=== PATIENT | female | born 1950 | race Caucasian/White ===

== ENCOUNTER → 2017-07-17 | Outpatient (CLI) | payer OTHER | END | disposition home or self-care (01) | LOC: LAB SHORT 07:25 → PLD 07:25 | DX: L82.1 Other seborrheic keratosis (principal) | CPT/HCPCS: 88305 ==

== ENCOUNTER → 2020-05-24 | Outpatient (CLI) | payer OTHER | END | disposition home or self-care (01) | LOC: LAB SHORT 12:39 → LAB 12:39 | DX: L82.1 Other seborrheic keratosis (principal); L57.0 Actinic keratosis | CPT/HCPCS: 88305 ==

== ENCOUNTER 2021-01-26 08:47 | Day surgery (SDC) | payer OTHER ==
[~2021-01-26] VITALS: Ht 157.5 cm; Wt 65.3 kg
[~2021-01-26 08:47] MED LIST: DICL75ER PO
--- NOTE | 2021-01-26 09:21 | NUR ---
Ambulatory in Day Surgery Surgical site prepped with 2% Chlorhexidine cloth wipe. Mindy Paws warming gown applied. History, Chart, Medications and Allergies reviewed before start of procedure.Lungs clear T/O to Auscultation. Patient confirms NPO status and agrees with scheduled surgery. Pre-Op teaching done. Pt verbalizes understanding. Patient States Post-Procedure ride home has been arranged. Patient reports completing Chlorhexadine shower X2 prior to admission to hospital.
--- NOTE | 2021-01-26 13:23 | NUR ---
01/26/21 1323 [facility],[place] NO SPECIMENS PER DR NAVARRO.
--- NOTE | 2021-01-26 15:20 | NUR ---
PT ARRIVED TO UNIT FROM PACU REPORTS PAIN 5/10 TO LLE, STATING TOLERABLE. DRESSINGS TO LLE X3 CDI. POLAR PACK IN PLACE TO HIP. VSS. PT SLEEPY BUT AROUSABLE. ORIENTED TO ROOM AND CALL LIGHT; CALL LIGHT IN REACH. RESTING W/EYES CLOSED AT THIS TIME.
--- NOTE | 2021-01-26 17:09 | NUR ---
SUMMARY PT WORKED W/THERAPY. SAT UP ON SIDE OF BED AND BECAME LIGHTHEADED AND SLIGHTLY NAUSEATED. THERAPIST ASSISTED PT BACK TO BED. PT REPORTED BOTH NAUSEA AND LIGHTHEADED FEELING RESOLVED. RATES PAIN 1/10 AT THIS TIME. CALL LIGHT IN REACH.
[2021-01-27 04:01] LABS: BASOPHILS ABSOLUTE AUTO 0.02 K/mm3 (0.00-0.23); BASOPHILS PERCENT AUTO 0 % (0-2); EOSINOPHILS PERCENT AUTO 0 % (0-6); Hematocrit 32.4 % (33.0-51.0); Hemoglobin 11.1 g/dL (11.5-16.0); IMMATURE GRAN ABSOLUTE AUTO 0.04 K/mm3 (0.00-0.10); IMMATURE GRAN PERCENT AUTO 0 % (0-1); LYMPHOCYTES ABSOLUTE AUTO 1.14 K/mm3 (0.84-5.20); LYMPHOCYTES PERCENT AUTO 11 % (21-46); MONOCYTES ABSOLUTE AUTO 0.72 K/mm3 (0.16-1.47); MONOCYTES PERCENT AUTO 7 % (4-13); Mean Corpuscular HGB 31.8 pg (26.0-34.0); Mean Corpuscular HGB Conc 34.3 g/dL (31.5-36.5); Mean Corpuscular Volume 93 fL (80-100); Mean Platelet Volume 9.4 fL (9.1-12.4); NEUTROPHILS ABSOLUTE AUTO 8.83 K/mm3 (1.96-9.15); NEUTROPHILS PERCENT AUTO 82 % (41-73); Platelet Count 216 K/mm3 (150-400); RDW Coefficient Variation 12.2 % (11.7-14.2); RDW Standard Deviation 41.5 fL (35.1-46.3); Red Blood Cell Count 3.49 M/mm3 (3.80-5.20); White Blood Cell Count 10.75 K/mm3 (4.00-11.30)
[2021-01-27 04:17] LABS: Anion Gap 3 mmol/L (6-16); Blood Urea Nitrogen 16 mg/dL (8-24); Bun/Creatinine Ratio 22.7 (12.0-20.0); CO2, Blood 29 mmol/L (21-32); Calcium, Blood 8.6 mg/dL (8.5-10.1); Chloride, Blood 105 mmol/L (98-108); Creatinine, Blood 0.71 mg/dL (0.40-1.00); Glomerular Filtration Rate >60 (60-); Glucose, Blood 143 mg/dL (70-99); Magnesium, Blood 2.1 mg/dL (1.6-2.4); Potassium, Blood 4.1 mmol/L (3.5-5.5); Sodium, Blood 137 mmol/L (136-145)
--- NOTE | 2021-01-27 05:12 | NUR ---
LYING IN SEMI FOWLERS WITH EYES CLOSED, HAS RESTED WELL THIS SHIFT. AT START OF SHIFT PT HAD STATED THAT SHE DIDN'T WANT TO DRINK FLUIDS OF GET OOB AND AMBULATE. NURSING REITERATED NEED TO AMBULATE AND DRINK FLUIDS. NURSING ALSO REMIDED PT THAT SHE COULDN'T BE DISCHARGED UNTIL SHE HAD MADE ADEQUATE URINE. PT THEN AMBULATED TO BATHROOM AND VOIDED 100ML. SHE AMBULATED AGAIN LATER IN THE SHIFT AND VOIDED 125ML. WILL GET HER OOB AND TO BATHROOM ONCE MORE BEFORE END OF SHIFT. FOAM TAPE OVER GUAZE PRESSURE DRESSING REMAIN C/D/I. POLAR RICHARD, RAYRAY'S, AND SCD'S IN PLACE. GOOD DISTAL PULSES NOTED. SL RIGHT AC PIV IS PATENT, FLUSHING WITH EASE. PAIN MANAGED PER EMAR. JOSHEIS FURTHE NEEDS OR WANTS AT THIS TIME. SAFETY MEASURES IN PLACE. WILL CONTINUE TO MONITOR AND ADDRESS NEEDS THEY ARISE. WILL GIVE HAND OFF TO ONCOMING SHIFT USING SBAR DURING BEDSIDE REPORT.
[2021-01-27] MEDS ORDERED: PROM25 PO (08:13)
[2021-01-27] MEDS ORDERED: BACTRIM DS TAB1 EAC1 PO (08:15)
[2021-01-27] MEDS ORDERED: Aspir 8181 MG PO (08:18)
[2021-01-27] MEDS ORDERED: OXYC5 PO (08:19)
--- NOTE | 2021-01-27 13:20 | NUR ---
DISCHARGE SUMMARY PT POD #1 FOR LEFT TOTAL HIP REPLACEMENT. SHE C/O NO PAIN THIS SHIFT AND ONLY RECEIVED SCHEDULED TYLENOL AND TORADOL. PT REPORTS THAT SHE HAS ALREADY PICKED UP HER PAIN MEDICATION AND THAT SHE HAS IT AT HOME. SHE WORKED WITH P.T. AND O.T. AND WAS CLEARED FOR DISCHARGE. AMBULATES WITH A SBA W/FWW. PT DRIVEN HOME BY FRIEND.
== END 2021-01-27 12:59 | disposition home or self-care (01) ==
LOC: ORSCMMR 08:47 → EDSTATUS 10:00 → PRE IP 10:00 → SURS 15:19 → ORSCMMR 01-27 12:59 → SURS 01-27 12:59
PROVIDERS: Orthopaedic Surgery
PROC: 8E0YXBZ Computer Assisted Procedure of Lower Extremity (ICD-10-PCS; principal; 2021-01-26 10:00)
PROC: 0SRB0JA Replacement of Left Hip Joint with Synthetic Substitute, Uncemented, Open Approach (ICD-10-PCS; principal; 2021-01-26 10:00)
DX: M16.12 Unilateral primary osteoarthritis, left hip (principal); Z79.899 Other long term (current) drug therapy
CPT/HCPCS: 36415; 72170; 80048; 83735; 85025; 97110; 97116; 97162; 97166; 97530; 97535; A9270; C1713; C1776; J0171; J0690; J0735; J1100; J1885; J2250; J2370; J2405; J2550; J2704; J2765; J2795; J3010; J7120

== ENCOUNTER → 2022-11-04 | Outpatient (CLI) | payer OTHER ==
[~2022-11-04] MED LIST changes: +Aspir 8181 MG PO; +BACTRIM DS TAB1 EAC1 PO; +OXYC5 PO; +PROM25 PO
[2022-11-04 17:36] LABS: BASOPHILS ABSOLUTE AUTO 0.05 K/mm3 (0.00-0.23); BASOPHILS PERCENT AUTO 1 % (0-2); EOSINOPHILS PERCENT AUTO 4 % (0-6); Hematocrit 40.8 % (33.0-51.0); Hemoglobin 14.2 g/dL (11.5-16.0); IMMATURE GRAN ABSOLUTE AUTO 0.02 K/mm3 (0.00-0.10); IMMATURE GRAN PERCENT AUTO 0 % (0-1); LYMPHOCYTES ABSOLUTE AUTO 1.74 K/mm3 (0.84-5.20); LYMPHOCYTES PERCENT AUTO 33 % (21-46); MONOCYTES ABSOLUTE AUTO 0.29 K/mm3 (0.16-1.47); MONOCYTES PERCENT AUTO 6 % (4-13); Mean Corpuscular HGB 31.8 pg (26.0-34.0); Mean Corpuscular HGB Conc 34.8 g/dL (31.5-36.5); Mean Corpuscular Volume 92 fL (80-100); NEUTROPHILS ABSOLUTE AUTO 3.02 K/mm3 (1.96-9.15); NEUTROPHILS PERCENT AUTO 57 % (41-73); Platelet Count 215 K/mm3 (150-400); RDW Coefficient Variation 12.4 % (11.7-14.2); RDW Standard Deviation 41.1 fL (35.1-46.3); Red Blood Cell Count 4.46 M/mm3 (3.80-5.20); White Blood Cell Count 5.32 K/mm3 (4.00-11.30)
[2022-11-04 17:49] LABS: Albumin, Blood 4.2 g/dL (3.4-5.0); Albumin/Globulin Ratio 1.3 (0.8-1.8); Bilirubin, Total 0.6 mg/dL (0.1-1.0); Bun/Creatinine Ratio 19.8 (12.0-20.0); Calcium, Blood 9.4 mg/dL (8.5-10.1); Creatinine, Blood 0.81 mg/dL (0.40-1.00); Globulin, Blood 3.2 g/dL (2.2-4.0); Potassium, Blood 3.7 mmol/L (3.5-5.5); Total Protein, Blood 7.4 g/dL (6.4-8.2)
[2022-11-05 13:20] LABS: Thyroid Stimulating Hormone 2.06 uIU/mL (0.360-4.800)
== END | disposition home or self-care (01) ==
LOC: LAB SHORT 12:57 → LAB 12:57
PROVIDERS: Physician Assistant
DX: R00.2 Palpitations (principal); R42 Dizziness and giddiness
CPT/HCPCS: 80053; 84443; 84484; 85025; 85379

== ENCOUNTER 2022-11-07 20:59 | Emergency (ER) | payer OTHER ==
[~2022-11-07] VITALS: Ht 157.5 cm; Wt 67.1 kg
[2022-11-07 21:28] VITALS: BP 201/107
[2022-11-07 22:10] LABS: BASOPHILS ABSOLUTE AUTO 0.04 K/mm3 (0.00-0.23); BASOPHILS PERCENT AUTO 1 % (0-2); EOSINOPHILS ABSOLUTE AUTO 0.12 K/mm3 (0.00-0.68); EOSINOPHILS PERCENT AUTO 2 % (0-6); Hematocrit 42.2 % (33.0-51.0); Hemoglobin 14.7 g/dL (11.5-16.0); IMMATURE GRAN ABSOLUTE AUTO 0.02 K/mm3 (0.00-0.10); IMMATURE GRAN PERCENT AUTO 0 % (0-1); LYMPHOCYTES ABSOLUTE AUTO 2.02 K/mm3 (0.84-5.20); LYMPHOCYTES PERCENT AUTO 33 % (21-46); MONOCYTES PERCENT AUTO 8 % (4-13); Mean Corpuscular HGB 31.7 pg (26.0-34.0); Mean Corpuscular HGB Conc 34.8 g/dL (31.5-36.5); Mean Corpuscular Volume 91 fL (80-100); Mean Platelet Volume 9.6 fL (9.1-12.4); NEUTROPHILS ABSOLUTE AUTO 3.44 K/mm3 (1.96-9.15); NEUTROPHILS PERCENT AUTO 56 % (41-73); Platelet Count 218 K/mm3 (150-400); RDW Coefficient Variation 12.2 % (11.7-14.2); RDW Standard Deviation 41.1 fL (35.1-46.3); Red Blood Cell Count 4.63 M/mm3 (3.80-5.20); White Blood Cell Count 6.14 K/mm3 (4.00-11.30)
[2022-11-07 22:34] LABS: Albumin, Blood 4.2 g/dL (3.4-5.0); Albumin/Globulin Ratio 1.4 (0.8-1.8); Bilirubin, Total 0.9 mg/dL (0.1-1.0); Calcium, Blood 9.4 mg/dL (8.5-10.1); Creatinine, Blood 0.83 mg/dL (0.40-1.00); Potassium, Blood 3.8 mmol/L (3.5-5.5); Total Protein, Blood 7.2 g/dL (6.4-8.2)
== END 2022-11-08 00:28 | disposition home or self-care (01) ==
LOC: ER 20:59
PROVIDERS: Student in an Organized Health Care Education/Training Program
DX: I10 Essential (primary) hypertension (principal); Z91.030 Bee allergy status; Z79.899 Other long term (current) drug therapy; Z79.82 Long term (current) use of aspirin
CPT/HCPCS: 80053; 85025; 99283